=== PATIENT | female | born 1975 | race Caucasian/White ===

== ENCOUNTER 2018-03-28 06:47 | Inpatient (IN) | payer OTHER ==
[2018-03-28] MEDS ORDERED: CEFAZOLIN 1 GM INJ ×2 (07:00→07:59)
[2018-03-28] MEDS ORDERED: SUCCINYLCHOLINE CHLORIDE 100 MG/5 ML SYG IV (07:00)
[2018-03-28] MEDS ORDERED: PROPOFOL 20 ML (07:59)
[2018-03-28] MEDS ORDERED: GLYCOPYRROLATE 0.4 MG INJ (07:59)
[2018-03-28] MEDS ORDERED: NEOSTIGMINE 3 MG/3 ML SYRINGE (07:59)
[2018-03-28] MEDS ORDERED: ROCURONIUM 50 MG INJ (07:59)
[2018-03-28] MEDS ORDERED: MIDAZOLAM 1 MG/ML 2 ML INJ (08:01)
[2018-03-28] MEDS ORDERED: FENTAnyl 50 MCG/ML VIAL (08:01)
[2018-03-28] MEDS ORDERED: ONDANSETRON 4 MG INJ (08:02)
[2018-03-28] MEDS ORDERED: DEXAMETHASONE 4 MG/ML 1 ML INJ (08:02)
[2018-03-28] MEDS ORDERED: morphine SULFATE/PF (10 MG/10 ML) INJ (08:04)
[2018-03-28] MEDS ORDERED: BUPIVACAINE 0.75%/DEXT (SPINAL) 2 ML INJ (08:04)
[2018-03-28] MEDS ORDERED: ZOLPIDEM 5 MG TAB PO ×2 (10:00→12:00)
[2018-03-28] MEDS ORDERED: ALBUTEROL 0.083% (NEB) 2.5 MG/3 ML AMP HHN (10:00)
[2018-03-28] MEDS ORDERED: EPHEDrine SULFATE 50 MG/5 ML SYG IV (10:00)
[2018-03-28] MEDS ORDERED: MEPERIDINE 25 MG INJ IV (10:00)
[2018-03-28] MEDS ORDERED: OXYCODONE/ACETAMINOPHEN (5/325) TAB PO ×2 (10:00)
[2018-03-28] MEDS ORDERED: hydrALAzine 20 MG INJ IV (10:00)
[2018-03-28] MEDS ORDERED: HYDROmorphONE 0.5 MG/0.5 ML SYG IV ×2 (10:00)
[2018-03-28] MEDS ORDERED: NALOXONE (0.4 MG/ML) INJ IV (10:00)
[2018-03-28] MEDS ORDERED: TRIMETHOBENZAMIDE 100 MG/ML VIAL IM ×2 (10:00)
[2018-03-28] MEDS ORDERED: LABETALOL HCL 20MG INJ IV (10:00)
[2018-03-28] MEDS ORDERED: HYDROmorphONE 1 MG/5 ML IV SYRINGE IV ×3 (10:00)
[2018-03-28] MEDS ORDERED: NALBUPHINE HCL (10 MG/1 ML) INJ IV (10:00)
[2018-03-28] MEDS ORDERED: KETOROLAC 30 MG INJ IV (10:00)
[2018-03-28] MEDS ORDERED: IPRATROPIUM (NEB) 0.5 MG/2.5 ML AMP HHN (10:00)
[2018-03-28] MEDS ORDERED: FENTAnyl 50 MCG/ML VIAL IV ×3 (10:00)
[2018-03-28] MEDS ORDERED: ONDANSETRON 4 MG INJ IV (10:00)
[2018-03-28] MEDS ORDERED: DIPHENHYDRAMINE 50 MG INJ IV ×2 (10:00)
[2018-03-28] MEDS ORDERED: SUGAMMADEX SODIUM 200 MG/2 ML VIAL IV (10:58)
[2018-03-28] MEDS ORDERED: METOCLOPRAMIDE 10 MG INJ (11:09)
[2018-03-28] MEDS: ONDANSETRON 4 MG INJ IV (11:28)
[2018-03-28] MEDS: MIDAZOLAM 1 MG/ML 2 ML INJ IV (11:30)
[2018-03-28] MEDS ORDERED: HYDROmorphONE 1 MG/ML SYG IV (12:00)
[2018-03-28] MEDS ORDERED: DIPHENHYDRAMINE 50 MG CAP PO (12:00)
[2018-03-28] MEDS: METOCLOPRAMIDE 10 MG TAB PO ×2 (12:00→18:29)
[2018-03-28] MEDS ORDERED: HYDROCODONE/APAP (5/325) TAB PO (12:00)
[2018-03-28] MEDS: THROMBIN 5000 UNIT VIAL (13:02)
[2018-03-28] MEDS: CEFAZOLIN 1 GM/50 ML (PMX) 50 ML IVPB ×2 (13:49→22:05)
[2018-03-28] MEDS: KETOROLAC 30 MG INJ IV ×2 (13:50→18:29)
[2018-03-28] MEDS: LACTATED RINGER'S 1,000 ML IV ×2 (15:10→15:20)
[2018-03-28] MEDS: ONDANSETRON INJ 6 MG in DEXTROSE 5% 50 ML IVPB (16:00)
[2018-03-29] MEDS: KETOROLAC 30 MG INJ IV ×4 (01:00→18:00)
[2018-03-29] MEDS: METOCLOPRAMIDE 10 MG TAB PO ×4 (01:00→18:00)
[2018-03-29] MEDS: LACTATED RINGER'S 1,000 ML IV ×3 (01:05→09:27)
[2018-03-29] MEDS: CEFAZOLIN 1 GM/50 ML (PMX) 50 ML IVPB ×2 (05:47→15:38)
[2018-03-29 06:26] LABS: ADD MAN DIFF? NO
[2018-03-29 06:32] LABS: BASOPHILS % 0.1 % (0.0-2.0); HEMATOCRIT 31.4 % (37.0-47.0); HEMOGLOBIN 9.8 g/dl (12.0-16.0); LYMPHOCYTES # 1.5 10^3/ul (0.8-2.9); LYMPHOCYTES % 16.5 % (15.0-51.0); MEAN CORPUSCULAR HEMOGLOBIN 25.6 pg (29.0-33.0); MEAN CORPUSCULAR HGB CONC 31.2 g/dl (32.0-37.0); MEAN PLATELET VOLUME 10.4 fl (7.4-10.4); MONOCYTE # 0.6 10^3/ul (0.3-0.9); MONOCYTES % 6.8 % (0.0-11.0); NEUTROPHILS % 76.4 % (39.0-77.0); PLATELET COUNT 273 10^3/UL (140-415); RED BLOOD COUNT 3.83 10^6/ul (4.20-5.40); RED CELL DISTRIBUTION WIDTH 14.8 % (11.5-14.5)
[2018-03-29 06:32] LABS: WHITE BLOOD COUNT 9.2 10^3/ul (4.8-10.8)
[2018-03-29 06:55] LABS: ANION GAP 9 (8-16); BLOOD UREA NITROGEN 6 mg/dl (7-20); CARBON DIOXIDE 27 mmol/L (21-31); CHLORIDE 105 mmol/L (97-110); CREATININE 0.57 mg/dl (0.44-1.00); POTASSIUM 4.1 mmol/L (3.5-5.1); SODIUM 137 mmol/L (135-144)
[2018-03-29] MEDS ORDERED: ALBUTEROL 0.083% (NEB) 2.5 MG/3 ML AMP HHN (08:30)
[2018-03-29] MEDS: BISACODYL (EC) 5 MG TAB PO (09:03)
[2018-03-29] MEDS: ENOXAPARIN 40 MG/0.4 ML SYG SC (09:26)
[2018-03-29] MEDS: ALPRAZOLAM 0.25 MG TAB PO (18:58)
[2018-03-29] MEDS: CAFFEINE 200 MG TABLET PO (21:07)
[2018-03-30] MEDS: METOCLOPRAMIDE 10 MG TAB PO ×4 (00:12→18:06)
[2018-03-30 05:18] LABS: ADD MAN DIFF? NO
[2018-03-30 05:29] LABS: BASOPHILS % 0.1 % (0.0-2.0); EOSINOPHILS # 0.1 10^3/ul (0.0-0.5); EOSINOPHILS % 1.5 % (0.0-7.0); HEMATOCRIT 31.4 % (37.0-47.0); HEMOGLOBIN 9.6 g/dl (12.0-16.0); LYMPHOCYTES # 2.4 10^3/ul (0.8-2.9); LYMPHOCYTES % 28.7 % (15.0-51.0); MEAN CORPUSCULAR HEMOGLOBIN 25.5 pg (29.0-33.0); MEAN CORPUSCULAR HGB CONC 30.6 g/dl (32.0-37.0); MEAN CORPUSCULAR VOLUME 83.3 fl (82.0-101.0); MEAN PLATELET VOLUME 10.3 fl (7.4-10.4); MONOCYTE # 0.5 10^3/ul (0.3-0.9); NEUTROPHIL # 5.2 10^3/ul (1.6-7.5); NEUTROPHILS % 63.3 % (39.0-77.0); PLATELET COUNT 261 10^3/UL (140-415); RED BLOOD COUNT 3.77 10^6/ul (4.20-5.40)
[2018-03-30 05:29] LABS: WHITE BLOOD COUNT 8.2 10^3/ul (4.8-10.8)
[2018-03-30] MEDS: HYDROCODONE/APAP (5/325) TAB PO ×2 (05:40→12:40)
[2018-03-30] MEDS: CAFFEINE 200 MG TABLET PO ×3 (08:32→21:00)
[2018-03-30] MEDS: ENOXAPARIN 40 MG/0.4 ML SYG SC (08:33)
[2018-03-31] MEDS: ALPRAZOLAM 0.25 MG TAB PO (02:57)
[2018-03-31] MEDS: METOCLOPRAMIDE 10 MG TAB PO ×5 (05:29→23:57)
[2018-03-31] MEDS: ENOXAPARIN 40 MG/0.4 ML SYG SC (08:09)
[2018-03-31] MEDS: CAFFEINE 200 MG TABLET PO ×3 (09:00→20:38)
[2018-03-31] MEDS: BISACODYL (EC) 5 MG TAB PO (14:00)
[2018-03-31] MEDS: SILVER SULFADIAZINE 1% 25 GM CR TOP (20:36)
[2018-03-31] MEDS: HYDROCODONE/APAP (5/325) TAB PO (20:51)
[2018-04-01] MEDS: METOCLOPRAMIDE 10 MG TAB PO ×2 (06:03→11:08)
[2018-04-01] MEDS: CAFFEINE 200 MG TABLET PO ×2 (09:00→12:17)
[2018-04-01] MEDS: SILVER SULFADIAZINE 1% 25 GM CR TOP (09:09)
[2018-04-01] MEDS: ENOXAPARIN 40 MG/0.4 ML SYG SC (09:10)
[2018-04-02] MEDS ORDERED: IOHEXOL 300MG/ML 150 ML BTL (22:16)
[2018-04-02] MEDS ORDERED: SOD CHLORIDE 0.9% 100 ML (22:16)
== END 2018-04-01 16:35 | disposition home or self-care (01) | DRG 742 ==
LOC: REC 06:47 → PP2 15:12
PROC: 0UT90ZZ Resection of Uterus, Open Approach (ICD-10-PCS; principal; 2018-03-28 08:00)
PROC: 0UT60ZZ Resection of Left Fallopian Tube, Open Approach (ICD-10-PCS; 2018-03-28 08:00)
PROC: 0UT50ZZ Resection of Right Fallopian Tube, Open Approach (ICD-10-PCS; 2018-03-28 08:00)
PROC: 0UT00ZZ Resection of Right Ovary, Open Approach (ICD-10-PCS; 2018-03-28 08:00)
PROC: 0DBN0ZZ Excision of Sigmoid Colon, Open Approach (ICD-10-PCS; 2018-03-28 08:00)
DX: D25.9 Leiomyoma of uterus, unspecified (principal); Z68.43 Body mass index [BMI] 50.0-59.9, adult; N73.6 Female pelvic peritoneal adhesions (postinfective); E66.01 Morbid (severe) obesity due to excess calories; D64.9 Anemia, unspecified; N70.11 Chronic salpingitis; N83.201 Unspecified ovarian cyst, right side; K63.89 Other specified diseases of intestine
CPT/HCPCS: 80051; 82565; 84520; 84703; 85025; 86850; 86900; 86901; 87086; 88305; 88307

== ENCOUNTER 2018-04-02 19:54 | Emergency (ER) | payer OTHER ==
[2018-04-02 21:21] LABS: ADD MAN DIFF? NO
[2018-04-02 21:28] LABS: WHITE BLOOD COUNT 8.5 10^3/ul (4.8-10.8)
[2018-04-02 21:28] LABS: BASOPHILS % 0.2 % (0.0-2.0); EOSINOPHILS # 0.5 10^3/ul (0.0-0.5); EOSINOPHILS % 6.1 % (0.0-7.0); HEMATOCRIT 35.9 % (37.0-47.0); HEMOGLOBIN 11.3 g/dl (12.0-16.0); LYMPHOCYTES % 35.1 % (15.0-51.0); MEAN CORPUSCULAR HEMOGLOBIN 25.7 pg (29.0-33.0); MEAN CORPUSCULAR HGB CONC 31.5 g/dl (32.0-37.0); MEAN CORPUSCULAR VOLUME 81.8 fl (82.0-101.0); MEAN PLATELET VOLUME 9.8 fl (7.4-10.4); MONOCYTE # 0.6 10^3/ul (0.3-0.9); MONOCYTES % 6.5 % (0.0-11.0); NEUTROPHIL # 4.4 10^3/ul (1.6-7.5); NEUTROPHILS % 51.7 % (39.0-77.0); PLATELET COUNT 377 10^3/UL (140-415); RED BLOOD COUNT 4.39 10^6/ul (4.20-5.40); RED CELL DISTRIBUTION WIDTH 14.7 % (11.5-14.5)
[2018-04-02 21:53] LABS: ANION GAP 13 (8-16); BLOOD UREA NITROGEN 13 mg/dl (7-20); CALCIUM 9.2 mg/dl (8.4-10.2); CARBON DIOXIDE 27 mmol/L (21-31); CHLORIDE 105 mmol/L (97-110); GLUCOSE 103 mg/dl (70-220); POTASSIUM 3.7 mmol/L (3.5-5.1); SODIUM 141 mmol/L (135-144)
[2018-04-02] MEDS: KETOROLAC 15 MG INJ IV (21:54)
[2018-04-02] MEDS: ONDANSETRON 4 MG INJ IV (23:32)
== END 2018-04-03 00:03 | disposition home or self-care (01) ==
LOC: E/R 04-03 00:03
DX: N99.842 Postprocedural seroma of a genitourinary system organ or structure following a genitourinary system procedure (principal); K86.2 Cyst of pancreas; Z91.040 Latex allergy status
CPT/HCPCS: 36415; 74177; 80048; 85025; 96374; 96375; 99285-25

== ENCOUNTER 2018-04-07 21:25 | Emergency (ER) | payer OTHER ==
[2018-04-07] MEDS: SOD CHLORIDE 0.9% 500 ML IV (23:23)
[2018-04-07] MEDS: ONDANSETRON 4 MG INJ IV ×2 (23:23→23:37)
[2018-04-07] MEDS: morphine 4 MG/ML VIAL IV (23:23)
[2018-04-07 23:30] LABS: ADD MAN DIFF? NO
[2018-04-07] MEDS: KETOROLAC 30 MG INJ IV (23:37)
[2018-04-07] MEDS: METOCLOPRAMIDE 10 MG INJ IV (23:37)
[2018-04-07 23:41] LABS: BASOPHILS % 0.2 % (0.0-2.0); EOSINOPHILS # 0.6 10^3/ul (0.0-0.5); EOSINOPHILS % 6.9 % (0.0-7.0); HEMOGLOBIN 10.9 g/dl (12.0-16.0); LYMPHOCYTES # 2.4 10^3/ul (0.8-2.9); LYMPHOCYTES % 30.1 % (15.0-51.0); MEAN CORPUSCULAR HGB CONC 32.1 g/dl (32.0-37.0); MEAN CORPUSCULAR VOLUME 81.1 fl (82.0-101.0); MEAN PLATELET VOLUME 10.5 fl (7.4-10.4); MONOCYTE # 0.5 10^3/ul (0.3-0.9); MONOCYTES % 6.3 % (0.0-11.0); NEUTROPHIL # 4.5 10^3/ul (1.6-7.5); NEUTROPHILS % 56.3 % (39.0-77.0); PLATELET COUNT 362 10^3/UL (140-415); RED BLOOD COUNT 4.19 10^6/ul (4.20-5.40); RED CELL DISTRIBUTION WIDTH 14.1 % (11.5-14.5)
[2018-04-07 23:41] LABS: WHITE BLOOD COUNT 8.1 10^3/ul (4.8-10.8)
[2018-04-08 00:09] LABS: ANION GAP 14 (8-16); BILIRUBIN,TOTAL 0.1 mg/dl (0.2-1.3)
[2018-04-08 00:11] LABS: ALANINE AMINOTRANSFERASE 38 IU/L (13-69); ALBUMIN 3.6 g/dl (3.3-4.9); ALKALINE PHOSPHATASE 68 IU/L (42-121); ASPARTATE AMINO TRANSFERASE 39 IU/L (15-46); BILIRUBIN,INDIRECT 0.1 mg/dl (0-1.1); BLOOD UREA NITROGEN 8 mg/dl (7-20); CALCIUM 8.8 mg/dl (8.4-10.2); CARBON DIOXIDE 25 mmol/L (21-31); CHLORIDE 107 mmol/L (97-110); GLUCOSE 86 mg/dl (70-220); LIPASE 40 U/L (23-300); POTASSIUM 3.6 mmol/L (3.5-5.1); SODIUM 142 mmol/L (135-144); TOTAL PROTEIN 7.2 g/dl (6.1-8.1)
[2018-04-08 01:23] LABS: ADD UMIC YES; UR ASCORBIC ACID NEGATIVE (NEGATIVE); UR BACTERIA MODERATE /HPF (NONE SEEN); UR BILIRUBIN (Dip) NEGATIVE (NEGATIVE); UR BLOOD (Dip) 1+ mg/dL (NEGATIVE); UR CLARITY SLIGHTLY CLOUDY (CLEAR); UR COLOR YELLOW (YELLOW); UR GLUCOSE (Dip) NEGATIVE (NEGATIVE); UR KETONES (Dip) NEGATIVE (NEGATIVE); UR LEUKOCYTE ESTERASE (Dip) TRACE Leu/ul (NEGATIVE); UR MUCUS MODERATE /HPF (NONE SEEN); UR NITRITE (Dip) POSITIVE (NEGATIVE); UR RBC 2 /HPF (0-5); UR SPECIFIC GRAVITY (Dip) 1.018 (1.003-1.030); UR TOTAL PROTEIN (Dip) NEGATIVE (NEGATIVE); UR UROBILINOGEN (Dip) NEGATIVE (NEGATIVE); UR WBC 21 /HPF (0-5)
== END 2018-04-08 03:11 | disposition home or self-care (01) ==
LOC: E/R 04-08 03:11
DX: G89.18 Other acute postprocedural pain (principal)
CPT/HCPCS: 36415; 80053; 81001; 83690; 85025; 96361; 96374; 96375; 99284-25